=== PATIENT | male | born 1995 | race Caucasian/White ===

== ENCOUNTER 2016-08-25 09:00 | Emergency (ER) | payer BC, OTHER ==
[2016-08-25 09:08] VITALS: BP 120/84; PULSE 69; TEMP 98.2; BMI 29.2
--- NOTE | 2016-08-25 10:26 | PDOC ---
[id number] SCRATCHES TO ARM Time Seen by Provider: 08/25/16 09:45 - History of Present Illness Initial Comments: 08/25/16 10:23 21 year old male while removing garbage bags in [facility] rat ran up the arm and scratched the right forearm this morning prior to arrival. Past History - Past Medical History Allergies/Adverse Reactions: Allergies Allergy/AdvReac Type Severity Reaction Status Date / Time No Known Allergies Allergy Verified 08/25/16 09:08 Home Medications: Ambulatory Orders NK [No Known Home Medication] 08/25/16 Thyroid Disease: No Other medical history: PATIENT DENIES MEDICAL HISTORY - Psycho/Social/Smoking Cessation Hx Anxiety: No Suicidal Ideation: No Smoking Status: No Smoking History: Never smoked Have you smoked in the past 12 months: No Number of Cigarettes Smoked Daily: 1 Hx Alcohol Use: No Drug/Substance Use Hx: No Substance Use Type: None *Physical Exam - Vital Signs Last Vital Signs Temp Pulse Resp BP Pulse Ox 98.2 F 69 16 120/84 97 08/25/16 09:05 08/25/16 09:05 08/25/16 09:05 08/25/16 09:05 08/25/16 09:05 - Physical Exam General Appearance: Yes: Appropriately Dressed Extremity: negative: Normal Capillary Refill, Normal Inspection, Normal Range of Motion, Tender, Pelvis Stable, Coldness, Cyanosis, Delayed Capillary Refill, Pedal Edema, Swelling, Calf Tenderness, Erythema, Inflammation, Other Integumentary: positive: Normal Color, Dry, Warm, Other (3 mm scratch to riht forearm/ ) Progress Note - Progress Note Progress Note: A: rodent exposure P: site cleaned/ patient does not meet criteria for rabies vaccine. [facility] requirements reviewed Medical Decision Making - Medical Decision Making 08/25/16 11:38 [facility] faxed info regarding scratch. patient does not meet the criteria for rabies vaccine *DC/Admit/Observation/Transfer Diagnosis at time of Disposition: Scratch liset - Discharge Dispostion Disposition: HOME Condition at time of disposition: Stable - Patient Instructions Printed Discharge Instructions: How to Care for an Insect Bite or Sting Additional Instructions: look for signs of infection. redness or streaking up the arm, pus or drainage. follow up with your doctor as soon as possible.
== END 2016-08-25 10:36 | disposition home or self-care (01) ==
LOC: JERFT 09:00
DX: S50.811A Abrasion of right forearm, initial encounter (principal); W53.11XA Bitten by rat, initial encounter; Y93.H9 Activity, other involving exterior property and land maintenance, building and construction; Y92.89 Other specified places as the place of occurrence of the external cause
CPT/HCPCS: 99281-25

== ENCOUNTER 2017-06-01 16:13 | Emergency (ER) | payer BC, OTHER ==
[2017-06-01 16:36] VITALS: BP 135/100; PULSE 89; TEMP 98.2; BMI 29.5
--- NOTE | 2017-06-01 16:37 | PDOC ---
Rapid Medical Evaluation Chief Complaint: Pain, Acute Time Seen by Provider: 06/01/17 16:30 Medical Evaluation: Allergies Allergy/AdvReac Type Severity Reaction Status Date / Time No Known Allergies Allergy Verified 08/25/16 09:08 06/01/17 16:31 I have performed a brief in-person evaluation of this patient. The patient presents with a chief complaint of: right shoulder, was lifting and swinging heAVY GARBAGE yesterday and felt a pull- also concerned about bruising to thigh wiht no injury intermittant over past 2 weeks Pertinent physical exam findings: limited ROM with full eleavations , mild fullness/ spasm I have ordered the following: Xray right shoulder , - will get CBC PT to eval bruising The patient will proceed to the ED for further evaluation.
[2017-06-01 16:55] LABS: BASO % 0.7 % (0-2.0); EOS % 4.4 % (0-4.5); HEMATOCRIT 46.7 % (35.4-49); HEMOGLOBIN 15.9 GM/dL (11.7-16.9); LYMPH % 29.4 % (8-40); MCH 30.8 pg (25.7-33.7); MEAN CELL VOLUME 90.4 fl (80-96); MEAN PLT VOLUME 7.3 fl (7.5-11.1); MONO % 7.1 % (3.8-10.2); NEUT % 58.4 % (42.8-82.8); PLATELET COUNT 239 K/MM3 (134-434); RBC 5.16 M/mm3 (4.00-5.60); RDW 12.9 % (11.9-15.9); WHITE BLOOD COUNT 7.2 K/mm3 (4.0-10.0)
--- NOTE | 2017-06-01 17:01 | PDOC ---
History of Present Illness - General Chief Complaint: Pain, Acute Stated Complaint: RT SHOULDER PAIN Time Seen by Provider: 06/01/17 16:30 History Source: Patient Exam Limitations: No Limitations - History of Present Illness Initial Comments: CHIEF COMPLAINT: 22 y/o afebrile male with PMH migraines c/o right shoulder pain and bruising to legs. 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 He admits today he woke up with some right shoulder pain. He also admits over the past few weeks he's noticed bruising on his legs. He denies trauma to legs. He does admit he takes aspirin twice a week for migraines. Vital signs on arrival are notable for BP of 135/100. REVIEW OF SYSTEMS: GENERAL/CONSTITUTIONAL: No fever/chills. No weakness. No weight change. HEAD, EYES, EARS, NOSE AND THROAT: No change in vision. No ear pain or discharge. No sore throat. CARDIOVASCULAR: No chest pain or shortness of breath. RESPIRATORY: No cough, wheezing, or hemoptysis. GASTROINTESTINAL: No abd pain, nausea, vomiting, diarrhea. GENITOURINARY: No dysuria, frequency, or change in urination. MUSCULOSKELETAL: +right shoulder pain. No neck or back pain. SKIN: +bruising to legs. NEUROLOGIC: No headache, vertigo, loss of consciousness, or loss of sensation. PHYSICAL EXAM: GENERAL: The patient is awake, alert, and fully oriented, in no acute distress. He is very well appearing, ambulatory, in NAD or obvious discomfort. HEAD: Normal with no signs of trauma. ENT: Pupils equal, round and reactive to light, extraocular movements intact, sclera anicteric, conjunctiva clear. Neck supple. LUNGS: Clear to auscultation bilaterally. Normal excursion. No respiratory distress or use of accessory muscles. CV: RRR, S1/S2, no MRG. Cap refill < 2 sec. ABDOMEN: Soft, non-distended, non-tender even to deep palpation, no hepatomegaly or splenomegaly, no masses. EXTREMITIES: Normal range of motion, no edema. Pain with palpation of right trapezius muscle. No TTP of right AC joint. NEUROLOGICAL: Normal speech, normal gait. CN II-XII grossly intact. PSYCH: Normal mood, normal affect. SKIN: Almost completely healed circular ecchymotic regions to inner thighs b/l. Past History - Past Medical History Allergies/Adverse Reactions: Allergies Allergy/AdvReac Type Severity Reaction Status Date / Time No Known Allergies Allergy Verified 06/01/17 16:32 Home Medications: Ambulatory Orders NK [No Known Home Medication] 08/25/16 Thyroid Disease: No - Suicide/Smoking/Psychosocial Hx Smoking Status: No Smoking History: Never smoked Have you smoked in the past 12 months: No Number of Cigarettes Smoked Daily: 1 Hx Alcohol Use: No Drug/Substance Use Hx: No Substance Use Type: None *Physical Exam - Vital Signs Last Vital Signs Temp Pulse Resp BP Pulse Ox 98.2 F 89 16 135/100 100 06/01/17 16:32 06/01/17 16:32 06/01/17 16:32 06/01/17 16:32 06/01/17 16:32 ED Treatment Course - LABORATORY CBC & Chemistry Diagram: 06/01/17 16:46 - ADDITIONAL ORDERS Additional order review: 06/01/17 16:46 RBC 5.16 MCV 90.4 MCHC 34.0 RDW 12.9 MPV 7.3 L Neutrophils % 58.4 Lymphocytes % 29.4 Monocytes % 7.1 Eosinophils % 4.4 Basophils % 0.7 Medical Decision Making - Medical Decision Making A/P: 22 y/o male with right shoulder muscle strain and bruising. Labs were drawn in [facility] to make sure patient's platelet count is normal. Labs - unremarkable. Will give Motrin for shoulder pain and supportive care instructions. Provided patient with referral to PCP and suggested f/u to further investigate bruising. Pt instructed to return to the ER with any worsening or concerning symptoms. The patient verbalizes understanding of all instructions, has no further questions and is awaiting discharge. *DC/Admit/Observation/Transfer Diagnosis at time of Disposition: Muscle strain, shoulder region Qualifiers: Encounter type: initial encounter Laterality: right Qualified Code(s): S46.911A - Strain of unspecified muscle, fascia and tendon at shoulder and upper arm level, right arm, initial encounter - Discharge Dispostion Disposition: HOME Condition at time of disposition: Good - Referrals Referrals: Mihai Tang MD [Staff Physician] - - Patient Instructions Printed Discharge Instructions: DI for Muscle Strain, How To Perform RICE (Rest , Ice, Compress, Elevate), DI for Shoulder Pain Additional Instructions: Discharge Instructions: -You have a pulled muscle in your shoulder -Take Motrin for pain if needed and stretch -Follow RICE instructions -Follow up with Dr. Tang within 2 weeks for follow up on bruising -Return to the ER with any worsening or concerning symptoms. - Post Discharge Activity Forms/Work/School Notes: Back to Work
[2017-06-01 17:20] LABS: INR 1.06 (0.82-1.09)
[2017-06-01] MEDS ORDERED: IBUPROFEN 400 MG TABLET (FP) PO ONE ×2 (17:50→17:57)
== END 2017-06-01 18:00 | disposition home or self-care (01) ==
LOC: JERFT 16:13
DX: S46.811A Strain of other muscles, fascia and tendons at shoulder and upper arm level, right arm, initial encounter (principal); X50.0XXA Overexertion from strenuous movement or load, initial encounter; Y93.H9 Activity, other involving exterior property and land maintenance, building and construction; Y92.098 Other place in other non-institutional residence as the place of occurrence of the external cause; Y99.0 Civilian activity done for income or pay
CPT/HCPCS: 36415; 85025; 85610; 99281-25

== ENCOUNTER 2018-11-22 09:47 | Emergency (ER) | payer BC ==
[2018-11-22 09:52] VITALS: BP 121/94; PULSE 77; TEMP 98; BMI 29.5
--- NOTE | 2018-11-22 10:12 | PDOC ---
History of Present Illness - General Chief Complaint: Injury Stated Complaint: INJURY Time Seen by Provider: 11/22/18 09:53 History Source: Patient Exam Limitations: No Limitations Past History - Past Medical History Allergies/Adverse Reactions: Allergies Allergy/AdvReac Type Severity Reaction Status Date / Time No Known Allergies Allergy Verified 11/22/18 09:48 Home Medications: Ambulatory Orders Famotidine [Pepcid -] 20 mg PO BID #14 tablet 11/02/17 COPD: No Thyroid Disease: No - Immunization History Immunization Up to Date: Yes - Suicide/Smoking/Psychosocial Hx Smoking Status: No Smoking History: Never smoked Have you smoked in the past 12 months: No Number of Cigarettes Smoked Daily: 1 Hx Alcohol Use: No Drug/Substance Use Hx: No Substance Use Type: None *Physical Exam - Vital Signs Last Vital Signs Temp Pulse Resp BP Pulse Ox 98.0 F 77 18 121/94 100 11/22/18 09:48 11/22/18 09:48 11/22/18 09:48 11/22/18 09:48 11/22/18 09:48 - Physical Exam General Appearance: No: Apparent Distress Musculoskeletal: positive: Normal Inspection. negative: Decreased Range of Motion Extremity: positive: Normal Capillary Refill, Normal Inspection, Normal Range of Motion, Other (FROM of L wrist, 5/5 strength LUE, no numbness or sensory deficit LUE, no swelling or deformity noted) Integumentary: positive: Normal Color. negative: Swelling, Ecchymosis, Bruising Neurologic: positive: Alert, Normal Mood/Affect, Motor Strength 5/5. negative: Sensory Deficit Medical Decision Making - Medical Decision Making 23 y/o M with no sig pmh presents with L wrist pain (along ulnar aspect) x 2 months. Pain initially started after patient had to put a lot of force to open a door knob. Patient is L handed and plays sports; states L wrist hurts more with physical activity. Has only tried icy hot for pain as of now. Has not had it evaluated by another doctor. Denies swelling, numbness/tingling PE unremarkable Unlikely fracture/dislocation Likely wrist sprain L wrist lukasz-wrapped Will refer to ortho Patient refused pain meds here 11/22/18 10:08 *DC/Admit/Observation/Transfer Diagnosis at time of Disposition: Left wrist sprain Qualifiers: Encounter type: initial encounter Qualified Code(s): S63.502A - Unspecified sprain of left wrist, initial encounter - Discharge Dispostion Disposition: HOME Condition at time of disposition: Stable Decision to Admit order: No - Referrals Referrals: Davon Wilson MD [Staff Physician] - 2 Days - Patient Instructions Printed Discharge Instructions: DI for Wrist Sprain Additional Instructions: Thank you for choosing [facility]. It was a pleasure taking care of you. You may take Motrin 600 mg every 6 hours by mouth as needed for mild to moderate pain. Take Motrin with food. You may also use Velcro wrist splint for comfort You were referred to orthopedic doctor for evaluation Return to the Emergency Department if your symptoms worsen or persist or have other concerning symptoms. - Post Discharge Activity
== END 2018-11-22 10:18 | disposition home or self-care (01) ==
LOC: JERFT 09:47
DX: S63.502A Unspecified sprain of left wrist, initial encounter (principal); X50.0XXA Overexertion from strenuous movement or load, initial encounter; Y93.89 Activity, other specified; Y92.89 Other specified places as the place of occurrence of the external cause; Y99.8 Other external cause status
CPT/HCPCS: 99281-25

== ENCOUNTER 2019-06-05 22:33 | Emergency (ER) | payer BC ==
[2019-06-05 23:07] VITALS: BP 136/96; PULSE 68; TEMP 97.8; BMI 29.5
--- NOTE | 2019-06-05 23:36 | PDOC ---
History of Present Illness - General Chief Complaint: Injury Stated Complaint: XRAY Time Seen by Provider: 06/05/19 23:26 History Source: Patient Exam Limitations: No Limitations - History of Present Illness Initial Comments: 06/05/19 23:31 Patient is a 24M with no significant PMH here today complaining of back pain after a slip and fall. 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 Denies head trauma , loc. Denies neck pain, chest pain, abdominal pain. Patient states he was able to walk afterwards and now. Denies fevers, chills, nausea, vomiting, headache. Past History - Past Medical History Allergies/Adverse Reactions: Allergies Allergy/AdvReac Type Severity Reaction Status Date / Time No Known Allergies Allergy Verified 06/05/19 22:56 Home Medications: Ambulatory Orders Famotidine [Pepcid -] 20 mg PO BID #14 tablet 11/02/17 COPD: No Thyroid Disease: No - Immunization History Immunization Up to Date: Yes - Psycho Social/Smoking Cessation Hx Smoking Status: No Smoking History: Never smoked Have you smoked in the past 12 months: No Number of Cigarettes Smoked Daily: 1 Hx Alcohol Use: No Drug/Substance Use Hx: No Substance Use Type: None Review of Systems - Review of Systems Able to Perform ROS?: Yes Comments:: 06/05/19 23:33 GENERAL/CONSTITUTIONAL: No fever or chills. No weakness. HEAD, EYES, EARS, NOSE AND THROAT: No change in vision. No ear pain or discharge. No sore throat. CARDIOVASCULAR: No chest pain or shortness of breath RESPIRATORY: No cough, wheezing, or hemoptysis. GASTROINTESTINAL: No nausea, vomiting, diarrhea or constipation. MUSCULOSKELETAL: No joint or muscle swelling or pain. No neck or back pain. NEUROLOGIC: No headache, vertigo, loss of consciousness, or change in strength/ sensation. *Physical Exam - Vital Signs Last Vital Signs Temp Pulse Resp BP Pulse Ox 97.8 F 68 17 136/96 100 06/05/19 22:57 06/05/19 22:57 06/05/19 22:57 06/05/19 22:57 06/05/19 22:57 - Physical Exam 06/05/19 23:34 GENERAL: Awake, alert, and fully oriented, in no acute distress BACK: No midline tenderness, tender to left lateral inferior back. No signs of trauma HEAD: No signs of trauma, normocephalic, atraumatic EYES: PERRLA, EOMI, sclera anicteric, conjunctiva clear ENT: Auricles normal inspection, hearing grossly normal, nares patent, oropharynx clear without exudates. Moist mucosa NECK: Normal ROM, no midline tenderness LUNGS: No distress, speaks full sentences, clear to auscultation bilaterally HEART: Regular rate and rhythm, normal S1 and S2, no murmurs, rubs or gallops, peripheral pulses normal and equal bilaterally. ABDOMEN: Soft, nontender, normoactive bowel sounds. No guarding, no rebound. No masses EXTREMITIES: Normal inspection, Normal range of motion, no edema. No clubbing or cyanosis. NEUROLOGICAL: Cranial nerves II through XII grossly intact. Normal speech, normal gait, no focal sensorimotor deficits SKIN: Warm, Dry, normal turgor, no rashes or lesions noted. Medical Decision Making - Medical Decision Making 06/05/19 23:34 Patient is 24M here today with back pain after minor trauma. Vitals normal and stable. No red flags on history or exam. Patient declining pain medication, states that he just wants this "on the record" with his employer. Will discharge home with return precautions, instructions to take tylenol and motrin for pain. 06/05/19 23:56 Patient requested x-rays as patient was to be discharged. Performed. No fracture, dislocation or other acute bony abnormality seen. Discharged with PCP follow up. Discharge - Discharge Information Problems reviewed: Yes Clinical Impression/Diagnosis: Back pain Qualifiers: Back pain location: low back pain Chronicity: acute Back pain laterality: left Sciatica presence: without sciatica Qualified Code(s): M54.5 - Low back pain Fall Qualifiers: Encounter type: initial encounter Qualified Code(s): W19.XXXA - Unspecified fall, initial encounter Condition: Good Disposition: HOME - Admission No - Follow up/Referral Referrals: [facility] [place] [Provider Group] - Patient Discharge Instructions Patient Printed Discharge Instructions: DI for Low Back Pain Additional Instructions: Please follow up with your primary care doctor in the next 1-2 weeks. Please return if you have any new, worsening or concerning symptoms, especially increasing pain or weakness. - Post Discharge Activity Work/Back to School Note: Back to Work
--- NOTE | 2019-06-05 23:40 | PDOC ---
Attending Attestation - Resident Resident Name: JeffersonWm naylor - ED Attending Attestation I have performed the following: I have examined & evaluated the patient, The case was reviewed & discussed with the resident, I agree w/resident's findings & plan, Exceptions are as noted - HPI HPI: 06/05/19 23:37 24 M with no PMH presents to ED with L lower back pain after trip and fall. Pt was at work today and slipped, landing directly onto his L hip. Denies headstrike/LOC. Pt was able to get up afterwards and has been ambulating without difficulty. Now endorses pain in his lower back that does not radiate elswhere. Denies weakness/numbness in either leg. No saddle anesthesia, no incontinence of bowel or bladder. - Physicial Exam PE: 06/05/19 23:39 "GENERAL: Awake, alert, and fully oriented, in no acute distress. HEAD: No signs of trauma EYES: PERRLA, EOMI, sclera anicteric, conjunctiva clear ENT: Auricles normal inspection, hearing grossly normal, nares patent, oropharynx clear without exudates. Moist mucosa NECK: Nontender, no stepoffs, Normal ROM, supple, no lymphadenopathy, JVD, or masses LUNGS: Breath sounds equal, clear to auscultation bilaterally. No wheezes, and no crackles HEART: Regular rate and rhythm, normal S1 and S2, no murmurs, rubs or gallops ABDOMEN: Soft, nontender, normoactive bowel sounds. No guarding, no rebound. No masses EXTREMITIES: Normal range of motion, no edema. No clubbing or cyanosis. No cords, erythema, or tenderness NEUROLOGICAL: Cranial nerves II through XII intact. 5/5 strength and sensation in all extremities, Normal speech, normal gait, normal cerebellar function SKIN: Warm, Dry, normal turgor, no rashes or lesions noted. BACK + L paraspinal TTP, no midline TTP, no stepoffs - Medical Decision Making 06/05/19 23:39 24 M with L lower back pain after fall. No bony tenderness or evidence of spinal cord injury. - Lumbar XR - Pain control 06/05/19 23:56 XR negative on my read Pt is well appearing, with normal vitals. Clinically stable for DC at this time. I discussed the physical exam findings, ancillary test results and final diagnoses with the patient. I answered all of the patient's questions. The patient was satisfied with the care received and felt comfortable with the discharge plan and treatment plan. The patient agrees to follow up with the primary care physician within 24-72 hours.
== END 2019-06-06 00:23 | disposition home or self-care (01) ==
LOC: JER 22:33
DX: M54.5 Low back pain (principal); W01.0XXA Fall on same level from slipping, tripping and stumbling without subsequent striking against object, initial encounter; Y93.89 Activity, other specified; Y92.69 Other specified industrial and construction area as the place of occurrence of the external cause; Y99.0 Civilian activity done for income or pay
CPT/HCPCS: 72100-TC-FY; 99281-25